=== PATIENT | male | born 1970 | race Caucasian/White ===

== ENCOUNTER 2019-02-15 12:07 | Day surgery (SDC) | payer OTHER ==
[~2019-02-15] VITALS: Ht 175.3 cm; Wt 87.0 kg
[~2019-02-15 12:07] MED LIST: ACYC400T4 PO; AMIT50TA; AMOX875T; BUTA-5 PO; CHOL100012 PO; CLIN300C8 PO; DOCU50CA PO; FLUN25SP3; HYDR-3240 PO; HYDR-3653 PO; HYDR2TAB29 PO; LACT1CAP24 PO; LITH600C PO; MELA5TAB21 PO; MIRT15TA PO; MORP15TA; OMEP-110; ONDA8TAB9 PO; PREG50CA PO; SILD50TA PO; SILTUSSIN DM; VENL150C PO; ZOLP10TA3; [UNRECOGNIZED DRUG - OTHER] PO; [UNRECOGNIZED DRUG - OTHER] PO
[2019-02-15 12:50] VITALS: BP 111/77
[2019-02-15] MEDS ORDERED: SODIUM CHLORIDE 0.9% 1,000 ML IV SCH (12:51)
[2019-02-15] MEDS ORDERED: LIDOCAINE-MPF 1%, 5ML ONE (13:55)
== END 2019-02-15 18:50 | disposition home or self-care (01) ==
LOC: OUT 12:07
PROVIDERS: ATTEND Anesthesiology
DX: M51.36 Other intervertebral disc degeneration, lumbar region (principal); M48.061 Spinal stenosis, lumbar region without neurogenic claudication
CPT/HCPCS: 62284; 72126; 72132; J7030; Q9965